=== PATIENT | female | born 2000 ===

== ENCOUNTER → 2020-12-25 | Outpatient (REF) | LOC: M EMP 09:39 | PROVIDERS: ATTEND Family Medicine | DX: Z11.52 Encounter for screening for COVID-19 (principal) ==

== ENCOUNTER → 2021-02-17 | Outpatient (REF) | LOC: M EMP 11:33 | PROVIDERS: ATTEND Family Medicine | DX: Z20.828 Contact with and (suspected) exposure to other viral communicable diseases (principal) ==